=== PATIENT | female | born 1975 | race Caucasian/White ===

== ENCOUNTER 2018-10-28 16:49 | Emergency (ER) | payer OTHER ==
[2018-10-28 17:00] VITALS: BP 129/84; PULSE 100; TEMP 99.5; BMI 29.9
[2018-10-28] MEDS ORDERED: ACETAMINOPHEN 325 MG TABLET (FP) PO ONE (17:15)
--- NOTE | 2018-10-28 17:18 | PDOC ---
History of Present Illness - General Chief Complaint: Pain Stated Complaint: HEADACHE, FEVER Time Seen by Provider: 10/28/18 17:03 History Source: Patient - History of Present Illness Timing/Duration: other (this am) Associated Symptoms: reports: headaches. denies: cough, fever/chills, nausea/ vomiting, shortness of breath Past History - Past Medical History Allergies/Adverse Reactions: Allergies Allergy/AdvReac Type Severity Reaction Status Date / Time No Known Allergies Allergy Verified 10/28/18 16:54 Home Medications: Ambulatory Orders NK [No Known Home Medication] 10/28/18 COPD: No - Immunization History Immunization Up to Date: Yes - Suicide/Smoking/Psychosocial Hx Smoking History: Never smoked Hx Alcohol Use: No Drug/Substance Use Hx: No Review of Systems - Review of Systems Constitutional: Yes: Malaise. No: Chills, Fever HEENTM: No: Ear Pain, Throat Pain Respiratory: No: Cough, Shortness of Breath ABD/GI: Yes: Nausea. No: Diarrhea, Vomiting, Abdominal cramping : No: Dysuria Neurological: Yes: Headache. No: Dizziness *Physical Exam - Vital Signs Last Vital Signs Temp Pulse Resp BP Pulse Ox 99.5 F 100 H 18 129/84 97 10/28/18 16:54 10/28/18 16:54 10/28/18 16:54 10/28/18 16:54 10/28/18 16:54 - Physical Exam General Appearance: Yes: Appropriately Dressed. No: Apparent Distress HEENT: positive: Normal ENT Inspection, Normal Voice, TMs Normal, Pharynx Normal. negative: Scleral Icterus (R), Scleral Icterus (L) Neck: positive: Supple Respiratory/Chest: positive: Lungs Clear, Normal Breath Sounds. negative: Respiratory Distress Cardiovascular: positive: Regular Rate, S1, S2 Gastrointestinal/Abdominal: positive: Soft. negative: Tender Integumentary: positive: Dry, Warm Neurologic: positive: Fully Oriented, Alert, Normal Mood/Affect Moderate Sedation - Procedure Monitoring Vital Signs: Procedure Monitoring Vital Signs Temperature 99.5 F 10/28/18 16:54 Pulse Rate 100 H 10/28/18 16:54 Respiratory Rate 18 10/28/18 16:54 Blood Pressure 129/84 10/28/18 16:54 O2 Sat by Pulse Oximetry (%) 97 10/28/18 16:54 Medical Decision Making - Medical Decision Making 10/28/18 17:15 43-year-old female, no significant history woke up this morning with generalized body aches with headache and low-grade fever. Took NyQuil and Motrin with no significant relief. No cough, shortness of breath, dizziness, photophobia, neck pain, vomiting, diarrhea or rash. No sick contacts or recent travel. See exam Viral syndrome Exam unremarkable -Flu neg -dc w/ supportive tx 10/28/18 18:57 Flu neg. Will dc w/ supportive tx *DC/Admit/Observation/Transfer Diagnosis at time of Disposition: Viral syndrome - Discharge Dispostion Disposition: HOME Condition at time of disposition: Good - Referrals Referrals: ON STAFF,NOT [Primary Care Provider] - - Patient Instructions Printed Discharge Instructions: DI for Viral Syndrome Additional Instructions: Es muy probable que tenga rolo enfermedad viral. Reyna prueba de gripe fue negativa. Descanse, tome muchos lquidos y tome Motrin o Tylenol para el dolor y / o la fiebre. Regrese a la shelbie de emergencias segn sea necesario Print Language: SAMMARINESE - Post Discharge Activity
[2018-10-28] MEDS ORDERED: ACETAMINOPHEN 325 MG TABLET (FP) ONE (17:20)
== END 2018-10-28 19:01 | disposition home or self-care (01) ==
LOC: JERFT 16:49
DX: B34.9 Viral infection, unspecified (principal)
CPT/HCPCS: 87804; 99281-25

== ENCOUNTER 2020-06-02 06:14 | Day surgery (SDC) | payer OTHER ==
[2020-05-30 16:58] VITALS: BMI 29.4
[2020-06-02] MEDS ORDERED: CEFAZOLIN 2 GM/D5W 2 GM/50 ML ML IVPB ONE (07:14)
[2020-06-02] MEDS ORDERED: PHENAZOPYRIDINE HCL 100 MG TABLET (FP) PO ONE (07:14)
--- NOTE | 2020-06-02 07:22 | HP ---
History & Physical Update - History History: No Change - Physical Physical: No Change - Assessment Assessment: No Change - Plan Plan: No Change (No change in HP)
[2020-06-02] MEDS ORDERED: ceFAZolin SODIUM 1 GM VIAL ONE ×2 (07:26→07:32)
[2020-06-02] MEDS ORDERED: ROCURONIUM BROMIDE 50 MG/5 ML SYRINGE ONE ×2 (07:30→09:11)
[2020-06-02] MEDS ORDERED: SUCCINYLCHOLINE CHLORIDE 200 MG/10 ML SYRINGE ONE (07:31)
[2020-06-02] MEDS ORDERED: MIDAZOLAM HCL 2 MG/2 ML SINGLE DOSE VIAL ONE ×2 (07:31)
[2020-06-02] MEDS ORDERED: KETAMINE HCL 200 MG/20 ML VIAL ONE (07:31)
[2020-06-02] MEDS ORDERED: PROPOFOL 20 ML ONE ×2 (07:31→08:50)
[2020-06-02] MEDS ORDERED: DEXAMETHASONE SOD PHOSPHATE 4 MG/1 ML VIAL ONE (07:32)
[2020-06-02] MEDS ORDERED: LIDOCAINE HCL/PF 2% SDV 5ML VIAL ONE (07:32)
[2020-06-02] MEDS ORDERED: SODIUM CHLORIDE 0.9% P/F 10 ML VIAL IJ ONE (07:32)
[2020-06-02] MEDS ORDERED: KETOROLAC TROMETHAMINE 30 MG/1 ML VIAL ONE (07:32)
--- NOTE | 2020-06-02 07:34 | HP ---
Satellite PMH - Chief Complaint Chief Complaint: SUbmucosal myoma. Dysmenorrhea. Leiomyomatous uterus History of Present Illness: 44 yo with heavy menses, Leiomyomatous uterus, menorrhagia and dysmenorrhea for laparoscopic robotic hysterectomy History Source: Patient Limitations to Obtaining History: No Limitations - Past Medical History Allergies/Adverse Reactions: Allergies Allergy/AdvReac Type Severity Reaction Status Date / Time No Known Allergies Allergy Verified 06/02/20 07:13 ...LMP: 05/23/20 ...: No - Current Medications Current Medications: Home Medications Medication Instructions Recorded NK [No Known Home Medication] 10/28/18 Satellite Physical Exam - Physical Examination Vital Signs: Vital Signs Period Temp Pulse Resp BP Sys/Adame Pulse Ox Last 24 Hr 98.0 F 74 16 120/69 100 General Appearance: Well Nourished, Well Developed ENT: Clear Lung: Clear to auscultation Heart: Regular rate & rhythm Breasts: Soft, Non-Tender, No masses bilaterally Abdomen: Soft Extremities: No edema Pelvic Exam: Within normal limits External Genitalia, Within normal limits Vagina, Within normal limits Cervix, Within normal limits [place], Other Uterus (enlarged) Neurological: Intact, Alert, Oriented Satellite Impression/Plan - Impression/Plan Impression: Leiomyomatous Uterus. Dysmenorhea. submucosal myoma. menorrhagia Operative Procedure: Laparoscopic robotic hysterectomy. bilateral salpingectomy Date to be Performed: 06/02/20
[2020-06-02] MEDS ORDERED: DEXMEDETOMIDINE HCL 200 MCG/2 ML IVPB ONE (07:35)
[2020-06-02] MEDS ORDERED: DEXAMETHASONE SOD PHOSPHATE/PF 10 MG/ML SDV ONE (07:35)
[2020-06-02] MEDS ORDERED: ROPIVACAINE HCL 0.5% 30ML VIAL ONE (07:35)
[2020-06-02] MEDS ORDERED: ceFAZolin SODIUM 1 GM VIAL IVPB ONE (08:13)
[2020-06-02] MEDS ORDERED: EPHEDRINE SULFATE/0.9% NACL/PF 50 MG/10 ML SYRINGE NR ONE (08:16)
[2020-06-02] MEDS ORDERED: NEOSTIGMINE METHYLSULFATE 0.5 MG/ML - 10 ML MDV ONE (08:47)
[2020-06-02] MEDS ORDERED: GLYCOPYRROLATE 0.2 MG/1 ML VIAL ONE (08:48)
--- NOTE | 2020-06-02 10:16 | OP ---
<Miguel Angel White - Last Filed: 06/02/20 10:14> Operative Note - Note: Operative Date: 06/02/20 Pre-Operative Diagnosis: heavy menses, Leiomyomatous uterus, menorrhagia and dysmenorrhea Operation: Robotic laprascopic assisted hysterectomy with right salpingectomy (left already absent) Post-Operative Diagnosis: Same as Pre-op Surgeon: Sherry Bone Litigation Coordinator: Miguel Angel White Anesthesiologist/APPLICATIONS INSTRUCTOR: Tony Real Anesthesia: General (also received TAP block in OR holding) Specimens Removed: uterus & right tube Estimated Blood Loss (mls): 50 Drains, Volume Out (mls): 200 ((orange/pyridum)) Fluid Volume Replaced (mls): 1,500 Operative Report Dictated: Yes <Sherry Bone - Last Filed: 06/03/20 19:44> Operative Note - Note: Operation: Robotic Laparoscopic Total Hysterectomy right salpingectomy
--- NOTE | 2020-06-02 10:25 | SURG ---
Surgery Assistant Sales Director Note Assistant Sales Director: Miguel Angel White PA-C Date of Service: 06/02/20 Diagnosis: heavy menses, Leiomyomatous uterus, menorrhagia and dysmenorrhea Procedure: Robotic laprascopic assisted total hysterectomy w/ right salpingectomy I was present for the entirety of the operative procedure. For further detail, please refer to operative report. Visit type - Case Type Case Type: Scheduled - New patient This patient is new to me today: Yes Date on this admission: 06/02/20
[2020-06-02] MEDS ORDERED: ACETAMINOPHEN 1000 MG/100 ML VIAL (NON FORMULARY) IVPB ONE ×2 (10:27→10:50)
[2020-06-02] MEDS ORDERED: ONDANSETRON 4 MG/2 ML VIAL IVPUSH PRN (10:54)
[2020-06-02] MEDS ORDERED: oxyCODONE HCL 5 MG TABLET PO PRN (11:45)
[2020-06-02] MEDS ORDERED: ACETAMINOPHEN 325 MG TABLET (FP) PO PRN (11:45)
[2020-06-02] MEDS: MORPHINE SULFATE 2 MG/ML VIAL IVPUSH PRN ×2 (14:49→21:13)
[2020-06-02] MEDS: CEFAZOLIN 2 GM/D5W 2 GM/50 ML ML IVPB SCH (17:53)
[2020-06-02] MEDS: LACTATED RINGERS SOLUTION 1,000 ML IV SCH ×2 (18:49→21:03)
[2020-06-03] MEDS: MORPHINE SULFATE 2 MG/ML VIAL IVPUSH PRN (02:07)
[2020-06-03] MEDS: CEFAZOLIN 2 GM/D5W 2 GM/50 ML ML IVPB SCH (02:10)
[2020-06-03] MEDS: LACTATED RINGERS SOLUTION 1,000 ML IV SCH (05:57)
--- NOTE | 2020-06-03 08:12 | PN ---
Progress Note (short form) - Note Progress Note: ASSURANCE MANAGER INSURANCE SURGERY POD #1 s/p Robotic laprascopic assisted hysterectomy with right salpingectomy (left already absent) No acute events since surgery per RN notes. C/o mild incisional tenderness. Adequate pain control w/ meds ordered. She has been oob and ambulating unassisted. Tolerating clears. Denies n/v/f/c, CP, palpitaions, SOB or HAUSER. Last Vital Signs Temp Pulse Resp BP Pulse Ox 98.0 F 70 18 92/60 95 06/03/20 06:00 06/03/20 06:00 06/03/20 06:00 06/03/20 06:00 06/02/20 13:55 GEN: a&o. nad Pulm: unlabored respirations on room air Cor:rrr ABD: all surgical ports c/d/i. No hematoma : connor to gravity LE: SCDs bilat. all compartments soft A/P: 44 yo female POD #1 s/p Robotic laprascopic assisted hysterectomy w/ right salpingectomy (left already absent). 23 Hr admit. Tolerated clear liquids last night -dc connor and begin trial of void -oob and ambulate -prn pain management -regular diet -dc home after voids and tolerates diet. -f/u with Dr. Bone as outlined in plan Above discussed with Dr. Bone and agrees. Problem List - Problems (1) Submucous myoma of uterus Code(s): D25.0 - SUBMUCOUS LEIOMYOMA OF UTERUS (2) Dysmenorrhea Code(s): N94.6 - DYSMENORRHEA, UNSPECIFIED (3) Menorrhagia Code(s): N92.0 - EXCESSIVE AND FREQUENT MENSTRUATION WITH REGULAR CYCLE
[2020-06-03] MEDS ORDERED: ENOXAPARIN NA (PORCINE) 40 MG/0.4 ML DISP.SYRIN SQ SCH (10:00)
[2020-06-03 14:09] VITALS: BP 106/67; PULSE 83; TEMP 98.2
[2020-06-03 14:12] LABS: BASO % 0.5 % (0-2.0); EOS % 0.8 % (0-4.5); HEMATOCRIT 36.7 % (32.4-45.2); HEMOGLOBIN 12.2 GM/dL (10.7-15.3); LYMPH % 29.2 % (8-40); MCH 31.9 pg (25.7-33.7); MCHC 33.4 g/dl (32.0-36.0); MEAN CELL VOLUME 95.4 fl (80-96); MEAN PLT VOLUME 9.2 fl (7.5-11.1); MONO % 6.2 % (3.8-10.2); NEUT % 63.3 % (42.8-82.8); PLATELET COUNT 215 K/MM3 (134-434); RBC 3.84 M/mm3 (3.60-5.2); RDW 12.9 % (11.6-15.6); WHITE BLOOD COUNT 8.2 K/mm3 (4.0-10.0)
--- NOTE | 2020-06-05 08:28 | OP ---
DATE OF OPERATION: 06/02/2020 PREOPERATIVE DIAGNOSES: Menorrhagia, leiomyomatous uterus and dysmenorrhea. OPERATION: Laparoscopic robotic total hysterectomy and right salpingectomy. POSTOPERATIVE DIAGNOSES: Menorrhagia, leiomyomatous uterus and dysmenorrhea. SURGEON: Loren Perdue MD HAM ROLLING MACHINE OPERATOR: DOROTHY Crane ANESTHESIA: General. ESTIMATED BLOOD LOSS: 50 mL. PROCEDURE: Patient was taken to the operating room, placed in the dorsal lithotomy position, prepped and draped in the usual sterile fashion. Timeout was performed in accordance with hospital regulation. A speculum was placed in the vagina. Anterior lip of the cervix grasped with single-tooth tenaculum. Cervix then dilated to accommodate the large uterine manipulator. Manipulator was secured around the cervix. The Mckeon catheter was then inserted into the bladder. Attention was then drawn to the abdomen where an 8-mm umbilical incision was made. Veress needle was inserted in the cavity. Approximately 3-4 L of CO2 was insufflated into the cavity. Veress needle was then removed and an 8-mm trocar was then inserted. Laparoscope and camera attached, visualization of omental adhesions and a leiomyomatous uterus. Left side had no fallopian tube present and a portion of the right fallopian tube was seen. Ovary was noted to be normal on the right. Two trocars were placed on the left side, 1 parallel to the umbilical incision and 1 in the upper left abdomen. The 8-mm trocar was inserted parallel to the umbilicus from the left and the 5-mm Lopes cannula was inserted in upper abdomen of the left side 2 fingerbreadths below the ribcage and 2 trocars were placed parallel on the right side to the umbilicus. Under direct visualization all trocars were inserted. Da Chanda robot was then side docked to the patient's bedside and trocars were then inserted. Instruments were then placed after burping all trocars. The tenaculum was placed in 1st arm, 2nd arm was the Endoshears, camera in the 3rd arm and the 4th arm was the vessel sealer. Once position of instruments was placed in the visual field the attention was then drawn to the console where control of the console was done. Tenaculum was then used to elevate the uterus to the right side and the left side was noted to have no fallopian tube or ovary. The vessel seal was used and also Endoshears were used to separate the uterus from the left lateral wall and uterine arteries were identified, cut and clamp. Vesicouterine reflection was then entered and bladder bluntly dissected out of the operative field. The uterine ovarian ligament was identified on the right side. Uterine arteries were then grasped and coagulated using LigaSure. Cardinal ligament was identified and clamped down to the level of the cervix bilaterally. After bladder had been bluntly dissected out of the operative field the Endoshears were then used to enter the vagina and cautery and cutting of the vagina away from the cervix were done. After the cervix was then removed from the vagina the uterus and cervix were then removed through the vagina and submitted to Pathology. The right fallopian tube was identified and LigaSure was then used to coagulate and cut the right fallopian tube and submit it to Pathology. Hemostasis was achieved. The 2-0 V-Loc suture was introduced into the abdomen and the vagina was then closed using 2-0 V-Loc suture in a continuous fashion. Hemostasis was achieved. The needle was then removed. Ureters identified bilaterally and found to have peristalsis. Irrigation was then done. Estimated blood loss was about 50 mL. Incisions were then closed using 3-0 Vicryl suture in subcuticular fashion. Wounds washed and dressed. The patient tolerated procedure well, was taken to the recovery room in stable condition. LOREN PERDUE M.D. [id number]
--- NOTE | 2020-06-05 17:16 | PATH ---
Surgical Pathology Report Patient Name: NETTA OROSCO [facility]. Rec. #: [id number] /Age/Gender: 1975 (Age: 44) / F Account: [id number] Location: AMBULATORY SURG Taken: 06/02/2020 Received: 06/02/2020 Reported: 06/05/2020 Physicians: Sherry Bone M.D. Specimen(s) Received UTERUS, CERVIX, AND RIGHT FALLOPIAN TUBE Clinical History Endometrial polyp/abnormal bleeding Final Diagnosis UTERUS, CERVIX, RIGHT FALLOPIAN TUBE, LAPAROSCOPIC TOTAL HYSTERECTOMY: 152 G UTERUS. LEIOMYOMA(TA), INTRAMURAL. SECRETORY ENDOMETRIUM. CERVIX WITHOUT SIGNIFICANT PATHOLOGIC FINDINGS. FIMBRIATED PORTION OF FALLOPIAN TUBE WITH FOCAL MICROCALCIFICATION. Electronically Signed Anita Gómez M.D. Gross Description Received in formalin labeled "uterus, cervix, right fallopian tube," is a 152 g uterus with an attached cervix and no attached adnexa. The specimen measures 10.3 cm from superior to inferior, 6 cm from left to right and 5 cm from anterior to posterior. The serosa is hamm-haile and smooth. The attached cervix measures 3.5 cm in length and averages 3.3 cm in diameter. The ectocervix is hamm-pink, smooth and glistening. The endocervix is unremarkable. The endometrial cavity measures 4.5 cm in length and 2 cm from cornu to cornu. The endometrium is hamm-red and measures up to 0.3 cm in thickness. The myometrium displays multiple intramural nodules, measuring up to 3.0 cm in greatest dimension. The cut surface of the nodules is hamm and rubbery with whorled architecture. No areas of hemorrhage or necrosis are identified. The remaining myometrium is hamm-pink and averages 2.4 cm in thickness. Separately received within the same container is a hamm jauregui portion of fimbria. There is no fallopian tube attached to the fimbria. Activity Aide sections are submitted in 10 cassettes as follows: 1-anterior cervix; 2-posterior cervix; 8-1-blvyvowm endomyometrium; 8-9-rjfeddtmy endomyometrium; 7-8-largest intramural nodule; 9-additional intramural nodules; 10-separately received fimbria. 06/03/202006/03/2020
== END 2020-06-03 15:10 | disposition home or self-care (01) ==
LOC: JASUSAT 06:14 → J3W 14:22 → JASUSAT 06-03 15:10
PROVIDERS: ATTEND Obstetrics & Gynecology
PROC: 0UT5FZZ Resection of Right Fallopian Tube, Via Natural or Artificial Opening With Percutaneous Endoscopic Assistance (ICD-10-PCS; 2020-06-02)
PROC: 8E0W8CZ Robotic Assisted Procedure of Trunk Region, Via Natural or Artificial Opening Endoscopic (ICD-10-PCS; 2020-06-02)
PROC: 0UT9FZZ Resection of Uterus, Via Natural or Artificial Opening With Percutaneous Endoscopic Assistance (ICD-10-PCS; principal; 2020-06-02 08:00)
DX: N92.0 Excessive and frequent menstruation with regular cycle (principal); D25.1 Intramural leiomyoma of uterus; N94.6 Dysmenorrhea, unspecified
CPT/HCPCS: 58552; S2900; 36415; 85025; 86850; 86900; 86901; 88307-TC; 94010; 94760; J0131

== ENCOUNTER 2022-09-27 12:36 | Emergency (ER) | payer OTHER ==
[2022-09-27 13:29] VITALS: BP 114/75; PULSE 72; RESP 18; TEMP 97.8; BMI 29.9
== END 2022-09-27 18:50 | disposition home or self-care (01) ==
LOC: JER 12:36
DX: M79.89 Other specified soft tissue disorders (principal)
CPT/HCPCS: 93971; 99283-25